=== PATIENT | female | born 1995 | race Caucasian/White ===

== ENCOUNTER 2017-03-31 16:29 | Emergency (ER) | payer BC ==
[~2017-03-31] VITALS: Ht 172.7 cm; Wt 68.6 kg
[2017-03-31 16:30] VITALS: BP 134/86
[2017-03-31] MEDS ORDERED: LIDOCAINE 1%, 20ML ONE (16:58)
[2017-03-31] MEDS ORDERED: LIDOCAINE 1%, 20ML INFIL ONE (17:00)
[2017-03-31] MEDS ORDERED: DIPH,PERTUSS(ACELL),TET VAC/PF 0.5 ML IM-VACC ONE ×2 (17:21→17:30)
== END 2017-03-31 18:00 | disposition home or self-care (01) ==
LOC: ED 17:02
DX: S61.012A Laceration without foreign body of left thumb without damage to nail, initial encounter (principal); Z23 Encounter for immunization; W45.8XXA Other foreign body or object entering through skin, initial encounter; Y93.89 Activity, other specified; Y99.8 Other external cause status; Y92.89 Other specified places as the place of occurrence of the external cause
CPT/HCPCS: 12002; 90471; 90715

== ENCOUNTER 2017-04-07 14:30 | Emergency (ER) | payer BC ==
[~2017-04-07] VITALS: Ht 172.7 cm; Wt 60.0 kg
[2017-04-07 14:38] VITALS: BP 120/80
[2017-04-07] MEDS ORDERED: birth control PO (15:18)
[2017-04-07] MEDS ORDERED: SERT25TA PO (15:18)
== END 2017-04-07 15:20 | disposition home or self-care (01) ==
LOC: ED 15:03
DX: S61.012A Laceration without foreign body of left thumb without damage to nail, initial encounter (principal)
CPT/HCPCS: 99282